=== PATIENT | male | born 1950 | race American Indian/Alaskan Native ===

== ENCOUNTER 2017-02-27 20:10 | Inpatient (IN) | payer OTHER ==
[~2017-02-27] VITALS: Ht 177.8 cm; Wt 108.7 kg
--- NOTE | 2017-02-27 00:08 | NUR ---
ADMISSION NOTE Received patient from ER via gurney. Patient admitted with diagnosis of PNA. Patient is awake, alert, oriented X 4. Patient oriented to hospital room, call light, toileting, pain management and safety-teach back done. Patient informed that Terri will be her nurse and that their room number is 116A. Personal belongings checked and Belongings List documented. Call light within reach.
[2017-02-27 20:36] VITALS: BP_SYST 113
[2017-02-27] MEDS ORDERED: INSU100V9 SUBCUT (20:56)
[2017-02-27] MEDS ORDERED: INSU100V32 SUBCUT (20:56)
--- NOTE | 2017-02-27 20:56 | NUR ---
[place] with pain in the right groin, pain with weight bearing 10/10. Some numbing and tingling present in right lower extremity. Pedal pulse faint in right foot.
--- NOTE | 2017-02-27 21:03 | NUR ---
ER at bedside examining patient.
[2017-02-27] MEDS ORDERED: NACL 0.9% 1,000 ML IV ONE (21:10)
[2017-02-27] MEDS ORDERED: fentaNYL CITRATE/PF 100 MCG/2 ML AMP IVP ONE (21:15)
[2017-02-27] MEDS ORDERED: ASPIRIN 81 MG TAB.CHEW PO ONE (21:15)
[2017-02-27 21:54] LABS: BASOPHILS # (AUTO) 0.1 K/uL (0.0-0.2); BASOPHILS % (AUTO) 0.7 % (0.0-2.0); EOSINOPHILS % (AUTO) 0.4 % (0.0-4.0); HEMATOCRIT 47.6 % (36-54); HEMOGLOBIN 15.8 g/dL (14.0-18.0); LYMPHOCYTES # (AUTO) 1.6 K/uL (1.0-5.5); LYMPHOCYTES % (AUTO) 14.4 % (20.5-51.5); MEAN CORPUSCULAR HEMOGLOBIN 31 pg (27-31); MEAN CORPUSCULAR HGB CONC 33 % (32-36); MEAN CORPUSCULAR VOLUME 92 fL (79.0-98.0); MONOCYTES # (AUTO) 0.9 K/uL (0.0-1.0); NEUTROPHILS # (AUTO) 8.3 K/uL (1.8-7.7); NEUTROPHILS % (AUTO) 76.5 % (40.0-70.0); PLATELET COUNT (AUTO) 230 K/uL (130-430); RED BLOOD CELL COUNT(AUTO) 5.17 MIL/uL (4.2-6.2); RED CELL DISTRIBUTION WIDTH 12.1 % (9.0-15.0); WHITE BLOOD COUNT (AUTO) 10.9 K/uL (4.8-10.8)
[2017-02-27 21:57] LABS: ANION GAP 10 (5-15); CALCIUM 10.1 mg/dL (8.4-11.0); CHLORIDE 103 mmol/L (98-107); CREATININE 1.34 mg/dL (0.55-1.30); GLUCOSE 132 mg/dL (70-99); POTASSIUM 4.9 mmol/L (3.5-5.1); SODIUM SERUM 138 mmol/L (136-145); UREA NITROGEN, BLOOD 24 mg/dL (8-21)
[2017-02-27 21:58] LABS: GFR AFRICAN AMERICAN 68 mL/min (>90)
[2017-02-27 22:01] LABS: PROTHROMBIN TIME 10.5 SECS (9.5-12.5)
[2017-02-27 22:09] LABS: ALANINE AMINOTRANSFERASE 32 U/L (12-78); ALBUMIN 3.7 g/dL (3.4-4.8); ASPARTATE AMINOTRANSFERASE 24 U/L (10-37); TOTAL BILIRUBIN 0.6 mg/dL (0.0-1.0); TOTAL PROTEIN, SERUM 7.7 g/dL (6.4-8.3)
[2017-02-27] MEDS ORDERED: PIPERACILLIN/TAZO 3.375 GM in NS 50 ML IV ONE (22:30)
[2017-02-27] MEDS ORDERED: PIPERACILLIN/TAZOBACTAM 3.375 GM/VIAL (ZOSYN) IV ONE (22:43)
[2017-02-27] MEDS ORDERED: IBUP-1480 PO (23:00)
--- NOTE | 2017-02-27 23:15 | NUR ---
Dr Cabrera arrived to the ER, and starting to order CT of the head, x-ray of right lower leg, and other studies before Pt could be moved out to the floor.
[2017-02-27] MEDS ORDERED: ACETAMINOPHEN 325 MG TABLET PO ONE (23:30)
[2017-02-28] VITALS (7 sets, daily range): BP systolic 113–138
--- NOTE | 2017-02-28 00:15 | NUR ---
Patient will be admitted to care of Dr Cabrera. Admitted to Med/Surg unit. Will go to room 116A. Belongings list completed. Summary report printed. Report will be given at bedside.
--- NOTE | 2017-02-28 00:20 | NUR ---
ROUNDS PATIENT IN BED, AWAKE, ALERT, ORIENTED, NOT IN DISTRESS,VITALS STABLE. ASSESSMENT DONE AND DOCUMENTED. SEE FLOWSHEET. PLAN OF CARE DISCUSSED AND PATIENT VERBALIZED UNDERSTANDING. ORIENTED TO HIS ROOM, PHONE, TV AND CALL LIGHT. NEEDS ATTENDED TO. SAFETY AND FALL PRECAUTION MEASURES IN PLACED. BED IN LOW AND LOCKED POSITION. CALL LIGHT PLACED WITHIN REACH.
[2017-02-28] MEDS ORDERED: AZITHROMYCIN 500 MG/VIAL (ZITHROMAX) IV ONE (01:06)
[2017-02-28] MEDS ORDERED: cefTRIAXone 1 GM IVPB PREMIX 50 ML IV ONE (01:07)
--- NOTE | 2017-02-28 01:13 | NUR ---
Consultation Paged Reason for consultation: Right Leg Weakness Was consult called: Yes Person who was notified: Nuris Consulting Physician: Jose Frey Pen Maker Specialty: Neurology Pen Maker Ordered By: Dr Cabrera
[2017-02-28] MEDS: cefTRIAXone 1 GM in D5W 50 ML IV SCH ×2 (02:00→11:52)
--- NOTE | 2017-02-28 02:15 | NUR ---
PATIENT RESTING: Patient resting quietly. No acute distress noted. Vital signs within normal range.
[2017-02-28] MEDS: 0.45% NACL 1,000 ML IV SCH ×2 (02:22→20:58)
[2017-02-28] MEDS: AZITHROMYCIN 500 MG in NS 250 ML IV SCH (02:22)
--- NOTE | 2017-02-28 04:00 | NUR ---
PATIENT RESTING: Patient resting quietly. No acute distress noted. Vital signs within normal range.
[2017-02-28] MEDS: INSULIN REGULAR, HUMAN 100 UNITS/ML, 10 ML VIAL (novoLIN R) SUBCUT PRN ×4 (06:14→21:07)
[2017-02-28 06:34] LABS: BASOPHILS # (AUTO) 0.1 K/uL (0.0-0.2); BASOPHILS % (AUTO) 0.7 % (0.0-2.0); EOSINOPHILS # (AUTO) 0.2 K/uL (0.0-0.4); EOSINOPHILS % (AUTO) 1.7 % (0.0-4.0); HEMATOCRIT 41.2 % (36-54); LYMPHOCYTES # (AUTO) 2.9 K/uL (1.0-5.5); LYMPHOCYTES % (AUTO) 28.8 % (20.5-51.5); MEAN CORPUSCULAR HEMOGLOBIN 32 pg (27-31); MEAN CORPUSCULAR HGB CONC 34 % (32-36); MEAN CORPUSCULAR VOLUME 93 fL (79.0-98.0); MONOCYTES # (AUTO) 1.2 K/uL (0.0-1.0); MONOCYTES % (AUTO) 11.6 % (1.7-9.3); NEUTROPHILS # (AUTO) 5.5 K/uL (1.8-7.7); NEUTROPHILS % (AUTO) 57.2 % (40.0-70.0); PLATELET COUNT (AUTO) 192 K/uL (130-430); RED BLOOD CELL COUNT(AUTO) 4.44 MIL/uL (4.2-6.2); RED CELL DISTRIBUTION WIDTH 11.8 % (9.0-15.0); WHITE BLOOD COUNT (AUTO) 9.9 K/uL (4.8-10.8)
[2017-02-28 06:50] LABS: ALBUMIN 3.2 g/dL (3.4-4.8); CALCIUM 8.8 mg/dL (8.4-11.0); CREATININE 1.29 mg/dL (0.55-1.30); POTASSIUM 4.4 mmol/L (3.5-5.1); TOTAL BILIRUBIN 0.6 mg/dL (0.0-1.0); TOTAL PROTEIN, SERUM 6.8 g/dL (6.4-8.3)
--- NOTE | 2017-02-28 06:53 | NUR ---
CLOSING NOTES PATIENT AWAKE, VITALS STABLE, NO PAIN AND DISCOMFORT AT THIS TIME. ALL NEEDS ATTENDED TO. SAFETY MEASURES MAINTAINED. CALL LIGHT PLACED WITHIN REACH.
[2017-02-28] MEDS: IPRATROPIUM/ALBUTEROL SULFATE 3 ML AMPUL.NEB INH SCH ×3 (07:28→19:40)
--- NOTE | 2017-02-28 08:00 | NUR ---
AM Initial Notes Pt aaox4 with complaints of right leg pain 06/21. Informed patient that I will put a page to Dr. Cabrera for medication orders. No sob, difficulty breathing or distress noted. IV to right hand #22g patent with IV fluid infusing. Fall and safety precautions enforced with bed alarm armed and 3 rails up. Encouraged to call for assistance. Call light within reach. Will monitor.
--- NOTE | 2017-02-28 08:09 | NUR ---
MD JACOB CALLED [facility] AT SPOKE WITH DR.AZAB CLAYTON AMANY LIP CUTTER AND SCORER.
--- NOTE | 2017-02-28 08:30 | NUR ---
Pain level Pt states pain to right leg decreased to 6/10 after repositioning and ice pack applied. Also states he still wants to be medicated with another stronger medication. Will inform .
--- NOTE | 2017-02-28 08:35 | NUR ---
Dr. Augie DE DIOS doing rounds and thoroughly assessed the patient. Plan of care discussed.
[2017-02-28] MEDS: MORPHINE 2 MG/ML INJ. SYRINGE IVP PRN ×3 (08:53→21:01)
--- NOTE | 2017-02-28 08:57 | NUR ---
CONSULTATION PAGED REASON FOR CONSULTATION:LEG WEAKNESS WAS CONSULT CALLED?Y PERSON WHO WAS NOTIFIED:HOLLEY CONSULTING PHYSICIAN:NOHEMY FERNÁNDEZ SATELLITE DISH TECHNICIAN SPECIALTY:NEURO SATELLITE DISH TECHNICIAN PHONE NUMBER:[phone]
[2017-02-28] MEDS ORDERED: MORPHINE 4 MG/ML INJ. SYRINGE IVP PRN (09:00)
[2017-02-28] MEDS ORDERED: cefTRIAXone 1 GM in D5W 50 ML IV SCH (09:00)
[2017-02-28] MEDS ORDERED: ASPIRIN 81 MG TAB.CHEW PO ONE (09:00)
[2017-02-28] MEDS ORDERED: AZITHROMYCIN 500 MG in NS 250 ML IV SCH (09:00)
--- NOTE | 2017-02-28 09:01 | NUR ---
Nutrition Update Daniel Scale 17 noted. Pt admitted for pneumonia. Diet: [facility] BMI: 34.4 kg/m2 RD to follow per nutrition care standards.
--- NOTE | 2017-02-28 09:02 | NUR ---
Pain Meds Given Pt c/o pain to leg, pt is restless in bed. Morphine 2mg IVP given over 1 minute. Pt c/o of feeling sleepy immediately after administration of Morphine. Pt placed on 2L via NC oxygen. O2 sat 96%. Pt is easily arousable to name and pt remains alert and oriented. Pt instructed on need to call for assist prior to ambulating, pt verbalize understanding. Bed alarm on. Bed in lowest position. Side rails x3. Call light in hand. Continue to monitor pt closely. MEI Montelongo made aware.
[2017-02-28] MEDS ORDERED: ONDANSETRON HCL 4 MG/2 ML VIAL IVP PRN (10:15)
--- NOTE | 2017-02-28 11:00 | NUR ---
Rounds Pt just got back from MRI. States pain is starting to come back and escalating. No distress noted. Repositioned and kept comfortable. Call light within reach. Will monitor.
--- NOTE | 2017-02-28 13:00 | NUR ---
Pain Pt complaints of right leg pain 5/10. No distress noted. Informed RN for medication administration.
--- NOTE | 2017-02-28 13:22 | NUR ---
CONSULTATION PAGED REASON FOR CONSULTATION:LUMBAR DISC WAS CONSULT CALLED?Y PERSON WHO WAS NOTIFIED:HALIE CONSULTING PHYSICIAN:SHYAM HAINES (NAKIA WILKES METER AND SERVICE LINE INSPECTOR) ENTRY LEVEL MARKETING ASSISTANT SPECIALTY:NEUROSURGERY ENTRY LEVEL MARKETING ASSISTANT PHONE NUMBER:[phone]
--- NOTE | 2017-02-28 16:35 | NUR ---
Rounds Pt asleep. No signs of facial grimacing for pain or discomfort. No distress noted. Will monitor.
--- NOTE | 2017-02-28 18:30 | NUR ---
Closing notes Pt asleep. No signs of facial grimacing for pain or discomfort. No distress noted. IV fluid infusing. Will endorse care to incoming nurse.
--- NOTE | 2017-02-28 20:45 | NUR ---
OPENING NOTES PATIENT IS A/OX4. NO SIGNS OF DISTRESS. BREATHING IS NON LABORED. IV IS PATIENT. URINAL IS AT BEDSIDE. PATIENT HAS NO COMPLAINTS OF PAIN. VITAL SIGNS ARE STABLE. BED ALARM IS ON. CALL LIGHT IS WITHIN REACH. PATIENT INSTRUCTED TO CALL FOR CALL FOR ASSISTANCE. PATIENT VERBALIZED UNDERSTANDING. WILL CONTINUE TO MONITOR.
--- NOTE | 2017-02-28 22:44 | NUR ---
ROUNDS PATIENT IN BED SLEEPING. NO SIGNS OF DISTRESS. BREATHING IS NON LABORED. BED ALARM IS ON. WILL CONTINUE TO MONITOR.
[2017-03-01] VITALS (7 sets, daily range): BP systolic 118–144
[2017-03-01] MEDS: IPRATROPIUM/ALBUTEROL SULFATE 3 ML AMPUL.NEB INH SCH ×4 (00:01→19:55)
--- NOTE | 2017-03-01 01:15 | NUR ---
ROUNDS PATIENT IS IN BED SLEEPING COMFORTABLE. NO SIGNS OF DISTRESS. BREATHING IS NON LABORED. BED ALARM IS ON. CALL LIGHT IS WITHIN REACH. WILL CONTINUE TO MONITOR.
--- NOTE | 2017-03-01 03:25 | NUR ---
PATIENT REFUSED BED ALARM PATIENT REFUSED BED ALARM. PATIENT STATED THAT HE NEEDS TO STAND UP WHEN URINATING AND IS FRUSTRATED WHEN BED ALARM GOES OFF. PATIENT EDUCATED ON SAFETY. PATIENT REFUSED BED ALARM. PATIENT INSTRUCTED TO CALL FOR ASSISTANCE. PATIENT VERBALIZED UNDERSTANDING. SAFETY MEASURES ARE IN PLACE. PATIENT REFUSED TO WEAR NON SKID SLIPPERS AT THIS TIME. WILL CONTINUE TO MONITOR. CALL LIGHT IS WITHIN REACH. SAFETY MEASURES ARE IN PLACE.
--- NOTE | 2017-03-01 05:44 | NUR ---
PATIENT CARE PATIENT WAS ASSISTED TO THE RESTROOM AND BACK INTO BED. PATIENT GAIT IS NOT STEADY. PATIENT NEEDED ASSISTED AND USE OF CANE. PATIENT REFUSED BEDSIDE COMMODE. PATIENT IS IN BED RESTING COMFORTABLY. PATIENT REFUSED BED ALARM. PATIENT EDUCATED ON THE IMPORTANCE OF BED ALARM. PATIENT REFUSED. CALL LIGHT IS WITHIN REACH. SAFETY MEASURES ARE IN PLACE. WILL CONTINUE TO MONITOR. PATIENT INSTRUCTED TO CALL FOR ASSISTANCE. PATIENT VERBALIZED UNDERSTANDING.
[2017-03-01] MEDS: DEXAMETHASONE 1 MG TABLET (DECADRON) PO SCH ×3 (06:00→21:33)
[2017-03-01] MEDS: INSULIN REGULAR, HUMAN 100 UNITS/ML, 10 ML VIAL (novoLIN R) SUBCUT PRN ×4 (06:13→21:39)
--- NOTE | 2017-03-01 06:28 | NUR ---
NEW IV IV THE LEFT HAND DISLODGED. NEW IV TO THE RIGHT HAND 22G WAS INSERTED. PATIENT TOLERATED IT WELL.
[2017-03-01] MEDS: MORPHINE 2 MG/ML INJ. SYRINGE IVP PRN (06:35)
--- NOTE | 2017-03-01 06:49 | NUR ---
CLOSING NOTES PATIENT IS IN RESTING COMFORTABLY IN BED. NO SIGNS OF DISTRESS. BREATHING IS NON LABORED. IV IS PATENT. CALL LIGHT IS WITHIN REACH. PATIENT REFUSED BED ALARM. SAFETY MEASURES ARE IN PLACE. WILL ENDORSE ALL CARE TO THE MORNING NURSE.
--- NOTE | 2017-03-01 08:00 | NUR ---
RN OPENING NOTES PATIENT LYING ON BED ALERT ORIENTED X 4 PATIENT WAS ASSESSED AND VITAL SIGNS ARE STABLE, PATIENT WILL BE GIVEN HIS MED, WILL FOLLOW UP
[2017-03-01] MEDS ORDERED: MORPHINE 2 MG/ML INJ. SYRINGE IVP PRN (08:45)
--- NOTE | 2017-03-01 09:13 | NUR ---
CONSULT PULMONOLOGY PNEUMONIA DR NAVARRETE [phone] S/W [facility] OFFICE @ [phone]
[2017-03-01] MEDS: cefTRIAXone 1 GM in D5W 50 ML IV SCH (09:35)
[2017-03-01] MEDS: AZITHROMYCIN 500 MG in NS 250 ML IV SCH (09:35)
--- NOTE | 2017-03-01 10:00 | NUR ---
RN ROUNDS [facility] CALLED AND CAME TO AMBULATE THE PATIENT OOB.. THE MD CALLED TO STOP THE AMBULATION SINCE THE PATIENT HAS FRACTURE IN THE RIGHT ANKLE. PATIENT WAS PUT TO BED REST.
--- NOTE | 2017-03-01 10:54 | NUR ---
CONSULTATION FOR TIB/FIB FRACTURE HARJINDER VERA FROM DR VILLALPANDO OFFICE DR VILLALPANDO SHOE LINING FITTER FOR DR VINCENT [phone]
--- NOTE | 2017-03-01 11:30 | NUR ---
RN ROUNDS PATIENT LYING ON BED, BLOOD SUGAR WAS MEASURED TO BE 295 MG/DL PATIENT WILL BE COVERED WITH REGULAR INSULIN WILL FOLLOW UP
--- NOTE | 2017-03-01 14:00 | NUR ---
RN ROUNDS PATIENT LYING ON BED SLEEPING, BREATHING ARE REGULAR , WILL FOLLOW UP WITH PATIENT'S ROUNDS
--- NOTE | 2017-03-01 17:00 | NUR ---
RN ROUNDS PATIENT LYING ON BED, BLOOD SUGAR WAS MEASURED TO BE 281 MG/DL PATIENT WILL BE COVERED WITH REGULAR INSULIN WILL FOLLOW UP
--- NOTE | 2017-03-01 18:00 | NUR ---
RN CLOSING NOTES. PATIENT WAS SERVED HIS DINNER, TOLERATED IT, THE BOOT FOR HIS RIGHT LEG WILL BE BROUGHT INTO HIS ROOM , WILL APPLY IT ONCE AVAILABLE, WILL SIGN OFF TO THE NEXT SHIFT
--- NOTE | 2017-03-01 20:05 | NUR ---
Initial Notes Patient alert and oriented, able to make needs known. Patient denies pain at this time. No SOB noted, on room air. Denies nausea/vomiting at this time. IV site patent, flushes well, infusing fluids as ordered. Patient repositioned self in bed. Goal of pain management, respiratory stability and safety this shift. Call light within reach. Will continue to monitor.
--- NOTE | 2017-03-01 22:00 | NUR ---
Notes Patient sleeping. No s/s of pain noted. No SOB noted. IV site patent, flushes well, infusing fluids as ordered. Call light within reach. Will continue to monitor.
--- NOTE | 2017-03-02 00:19 | NUR ---
Notes Patient sleeping at this time. No s/s of pain noted. No SOB noted. Afebrile. IV site patent, flushes well. Call light within reach. Will continue to monitor.
[2017-03-02] MEDS: IPRATROPIUM/ALBUTEROL SULFATE 3 ML AMPUL.NEB INH SCH ×3 (01:00→13:40)
[2017-03-02 03:51] VITALS: BP_SYST 104
[2017-03-02] MEDS: DEXAMETHASONE 1 MG TABLET (DECADRON) PO SCH (06:14)
[2017-03-02] MEDS: INSULIN REGULAR, HUMAN 100 UNITS/ML, 10 ML VIAL (novoLIN R) SUBCUT PRN ×2 (06:22→11:45)
--- NOTE | 2017-03-02 06:42 | NUR ---
Closing Notes Patient denies pain at this time. No SOB noted, on room air. Denies nausea/vomiting at this time. IV site patent, flushes well, infusing fluids as ordered. Goal of pain management, respiratory stability and safety met. Call light within reach. Will continue to monitor.
--- NOTE | 2017-03-02 07:56 | NUR ---
INITIAL NOTE RECEIVED PATIENT FROM REHABILITATION MEDICINE PHYSICIAN NURSE, PATIENT IS CURRENTLY RESTING IN BED, NO SIGNS OF DISTRESS NOTED, BREATHING IS EVEN AND UNLABORED, ASSESSMENT COMPLETE, PATIENT HAS IV IN RIGHT HAND SALINE LOCK, FLUSHES WELL, PATIENT CURRENTLY HAS BOOT ON RIGHT FOOT, INSTRUCTED PATIENT TO USE CALL VEGA IF ASSISTANCE IS NEEDED, PATIENT VERBALIZED UNDERSTANDING, BED IN LOWEST POSITION, SIDE RAILS UP, BED ALARM ON, FALL PRECAUTIONS IN PLACE. WILL CONTINUE TO MONITOR,
[2017-03-02 08:00] VITALS: BP_SYST 128
[2017-03-02] MEDS: cefTRIAXone 1 GM in D5W 50 ML IV SCH (08:42)
--- NOTE | 2017-03-02 08:43 | NUR ---
MEDICATION PATIENT'S ANTIBIOTIC IS BEING ADMINISTERED, INSTRUCTED PATIENT TO CALL IF SWELLING AT IV SITE IS NOTED, PATIENT VERBALIZED UNDERSTANDING, PATIENT ALSO GIVEN PRN PAIN MEDICATION FOR PAIN AT LEVEL 8 IN RIGHT LEG/KNEE, NO OTHER NEEDS AT THIS TIME, WILL CONTINUE TO MONITOR, FALL PRECAUTIONS IN PLACE.
[2017-03-02] MEDS: AZITHROMYCIN 500 MG in NS 250 ML IV SCH (09:19)
--- NOTE | 2017-03-02 09:45 | NUR ---
RN ROUNDS PATIENT IS CURRENTLY RESTING IN BED WITH EYES CLOSED, NO SIGNS OF DISTRESS NOTED, BREATHING IS EVEN AND UNLABORED, CALL VEGA LEFT NEXT TO PATIENT'S HAND, BED IN LOWEST POSITION, SIDE RAILS UP, FALL PRECAUTIONS IN PLACE, WILL CONTINUE TO MONITOR. FALL PRECAUTIONS IN PLACE.
--- NOTE | 2017-03-02 11:34 | NUR ---
RN ROUNDS PATIENT IS LYING IN BED ON CELL PHONE, ACCUCHECK DONE, GLUCOSE IS AT 298,WILL GIVE INSULIN COVERAGE, WILL CONTINUE TO MONITOR, FALL PRECAUTIONS IN PLACE.
[2017-03-02] MEDS ORDERED: HYDROcodone/ACETAMIN 10-325 MG TAB PO PRN (12:30)
[2017-03-02 12:33] VITALS: BP_SYST 138
--- NOTE | 2017-03-02 12:48 | NUR ---
RN ROUNDS PATIENT IS SITTING ON SIDE OF BED EATING LUNCH, NO COMPLAINTS OF PAIN OR DISCOMFORT, FALL PRECAUTIONS IN PLACE WILL CONTINUE TO MONITOR.
--- NOTE | 2017-03-02 13:40 | NUR ---
HCP/PA: Called CHRISTAL Horvath made her aware of discharge to SNF. Patient accepted [facility], pending bed assignment. RN to report [phone]. [facility] ambulance [phone] on will call.
--- NOTE | 2017-03-02 14:39 | NUR ---
RN ROUNDS PATIENT LYING IN BED ON CELLPHONE, PATIENT HAS NO COMPLAINTS OF PAIN OR DISCOMFORT AT THIS TIME, FALL PRECAUTIONS IN PLACE, WILL CONTINUE TO MONITOR.
--- NOTE | 2017-03-02 14:45 | NUR ---
PT TRANSFERRED Report given to YANETH JOHNSON at [facility]. Transfer packet with Transfer Orders and Medication Reconciliation form given to EMT with report. Exitcare provided. [facility] ID band removed, replaced with ID band with pt's name and . IV catheter intact All belongings sent with patient. Patient left floor via gurney escorted by EMT in no distress. Addendum: 03/02/17 at 1710 by Irving Mancini RN wrong time 16:45
--- NOTE | 2017-03-02 15:55 | NUR ---
RN ROUNDS PATIENT IS CURRENTLY LYING IN BED, PATIENT MADE AWARE OF DISCHARGE TIME, NO OTHER NEEDS AT THIS TIME, WILL CONTINUE TO MONITOR.
[2017-03-02 16:10] VITALS: BP_SYST 121
[2017-03-02 16:22] VITALS: BP_SYST 121
--- NOTE | 2017-03-02 16:45 | NUR ---
PT TRANSFERRED Report given to YANETH JOHNSON at [facility]. Transfer packet with Transfer Orders and Medication Reconciliation form given to EMT with report. Exitcare provided. [facility] ID band removed, replaced with ID band with pt's name and . IV catheter intact All belongings sent with patient. Patient left floor via gurney escorted by EMT in no distress.
== END 2017-03-02 17:00 | DRG 562 ==
LOC: SED 20:10 → SMU 23:06
DX: S82.61XA Displaced fracture of lateral malleolus of right fibula, initial encounter for closed fracture (principal); J18.9 Pneumonia, unspecified organism; N17.9 Acute kidney failure, unspecified; M51.16 Intervertebral disc disorders with radiculopathy, lumbar region; M48.06 Spinal stenosis, lumbar region; I25.10 Atherosclerotic heart disease of native coronary artery without angina pectoris; E11.42 Type 2 diabetes mellitus with diabetic polyneuropathy; M19.90 Unspecified osteoarthritis, unspecified site; G89.29 Other chronic pain; W18.30XA Fall on same level, unspecified, initial encounter; S83.90XA Sprain of unspecified site of unspecified knee, initial encounter; I10 Essential (primary) hypertension; T38.0X5A Adverse effect of glucocorticoids and synthetic analogues, initial encounter; Z86.73 Personal history of transient ischemic attack (TIA), and cerebral infarction without residual deficits; Z95.1 Presence of aortocoronary bypass graft; Z88.5 Allergy status to narcotic agent; Z79.4 Long term (current) use of insulin; Z79.899 Other long term (current) drug therapy; Y93.89 Activity, other specified; Y92.89 Other specified places as the place of occurrence of the external cause; Y99.8 Other external cause status; I25.2 Old myocardial infarction; M54.2 Cervicalgia; M54.9 Dorsalgia, unspecified
CPT/HCPCS: 36415; 70450-TC; 71010; 72148; 73560-TC; 73564; 80053; 82962; 83880; 84302-TC; 84484; 85025; 85379; 85610-TC; 85651-TC; 85730-TC; 86140; 87040-TC; 93880; 93971; 94640; 94760; 96361; 96365; 96375; 97110-GP; 97116-GP; 97530-GP; 99285; J0456; J0696; J1815; J2270; J2543; J3010; J7030; J7042; J7050; J7060

== ENCOUNTER 2019-06-25 16:29 | Emergency (ER) | payer BC, OTHER ==
[~2019-06-25] VITALS: Ht 177.8 cm; Wt 104.3 kg
[~2019-06-25 16:29] MED LIST: INSU100V32 SUBCUT; INSU100V9 SUBCUT
[2019-06-25 16:40] VITALS: BP_SYST 117
[2019-06-25 18:14] LABS: BASOPHILS % (AUTO) 0.2 % (0.0-2.0); EOSINOPHILS # (AUTO) 0.2 K/uL (0.0-0.4); EOSINOPHILS % (AUTO) 2.9 % (0.0-4.0); HEMATOCRIT 42.4 % (36-54); HEMOGLOBIN 14.4 g/dL (14.0-18.0); LYMPHOCYTES # (AUTO) 2.4 K/uL (1.0-5.5); LYMPHOCYTES % (AUTO) 34.5 % (20.5-51.5); MEAN CORPUSCULAR HEMOGLOBIN 32 pg (27-31); MEAN CORPUSCULAR HGB CONC 34 % (32-36); MEAN CORPUSCULAR VOLUME 96 fL (79.0-98.0); MONOCYTES # (AUTO) 0.7 K/uL (0.0-1.0); MONOCYTES % (AUTO) 10.6 % (1.7-9.3); NEUTROPHILS # (AUTO) 3.6 K/uL (1.8-7.7); NEUTROPHILS % (AUTO) 51.8 % (40.0-70.0); PLATELET COUNT (AUTO) 193 K/uL (130-430); RED BLOOD CELL COUNT(AUTO) 4.44 MIL/uL (4.2-6.2); RED CELL DISTRIBUTION WIDTH 13.3 % (9.0-15.0)
[2019-06-25 18:28] LABS: CALCIUM 8.4 mg/dL (8.4-11.0); CREATININE 1.02 mg/dL (0.55-1.30); POTASSIUM 4.2 mmol/L (3.5-5.1)
[2019-06-25 18:30] LABS: INR 0.9 (0.80-1.20); PROTHROMBIN TIME 9.4 SECS (9.5-12.5)
[2019-06-25 18:33] LABS: ALBUMIN 3.4 g/dL (3.4-4.8); TOTAL BILIRUBIN 0.4 mg/dL (0.0-1.0)
[2019-06-25 18:38] LABS: BILIRUBIN,URINE NEGATIVE (NEGATIVE); BLOOD, URINE NEGATIVE (NEGATIVE); CLARITY/URINE CLEAR (CLEAR); COLOR,URINE YELLOW (YELLOW); GLUCOSE,URINE 3+ (NEGATIVE); KETONES,URINE NEGATIVE (NEGATIVE); LEUKOCYTE ESTERASE ,URINE NEGATIVE (NEGATIVE); NITRITE, URINE NEGATIVE (NEGATIVE); PH,URINE 6.5 (5.0-8.0); PROTEIN URINE NEGATIVE (NEGATIVE); UROBILINOGEN,URINE 0.2 (0.2-1.0)
[2019-06-25 18:58] LABS: BACTERIA,URINE RARE /HPF (None Seen); RBC,URINE 0-3 /HPF (0-3); WBC,URINE 0-3 /HPF (0-3)
[2019-06-25 20:45] VITALS: BP_SYST 134
== END 2019-06-25 20:45 | disposition home or self-care (01) ==
LOC: SED 16:29
DX: R33.9 Retention of urine, unspecified (principal); E11.9 Type 2 diabetes mellitus without complications; I10 Essential (primary) hypertension; Z88.5 Allergy status to narcotic agent; Z79.4 Long term (current) use of insulin; Z86.79 Personal history of other diseases of the circulatory system
CPT/HCPCS: 36415; 80053; 81000-TC; 82150-TC; 83605; 83690-TC; 85025; 85610-TC; 85730-TC; 99284

== ENCOUNTER 2019-06-27 06:30 | Emergency (ER) | payer BC ==
[~2019-06-27] VITALS: Ht 177.8 cm; Wt 104.3 kg
[2019-06-27 06:33] VITALS: BP_SYST 114
[2019-06-27 07:28] LABS: BASOPHILS # (AUTO) 0.1 K/uL (0.0-0.2); BASOPHILS % (AUTO) 1.3 % (0.0-2.0); EOSINOPHILS # (AUTO) 0.1 K/uL (0.0-0.4); EOSINOPHILS % (AUTO) 1.3 % (0.0-4.0); HEMATOCRIT 41.6 % (36-54); HEMOGLOBIN 14.4 g/dL (14.0-18.0); LYMPHOCYTES # (AUTO) 2.3 K/uL (1.0-5.5); LYMPHOCYTES % (AUTO) 21.6 % (20.5-51.5); MEAN CORPUSCULAR HEMOGLOBIN 33 pg (27-31); MEAN CORPUSCULAR HGB CONC 35 % (32-36); MEAN CORPUSCULAR VOLUME 95 fL (79.0-98.0); MONOCYTES # (AUTO) 1.3 K/uL (0.0-1.0); MONOCYTES % (AUTO) 11.7 % (1.7-9.3); NEUTROPHILS # (AUTO) 6.9 K/uL (1.8-7.7); NEUTROPHILS % (AUTO) 64.1 % (40.0-70.0); PLATELET COUNT (AUTO) 199 K/uL (130-430); RED BLOOD CELL COUNT(AUTO) 4.38 MIL/uL (4.2-6.2); RED CELL DISTRIBUTION WIDTH 13.3 % (9.0-15.0); WHITE BLOOD COUNT (AUTO) 10.8 K/uL (4.8-10.8)
[2019-06-27 07:46] LABS: PROTHROMBIN TIME 9.8 SECS (9.5-12.5)
[2019-06-27 08:15] VITALS: BP_SYST 102
== END 2019-06-27 08:15 | disposition home or self-care (01) ==
LOC: SED 06:30
DX: R33.9 Retention of urine, unspecified (principal); E11.9 Type 2 diabetes mellitus without complications; I10 Essential (primary) hypertension; Z46.6 Encounter for fitting and adjustment of urinary device; Z86.79 Personal history of other diseases of the circulatory system; Z90.49 Acquired absence of other specified parts of digestive tract; Z88.5 Allergy status to narcotic agent; Z79.899 Other long term (current) drug therapy
CPT/HCPCS: 36415; 76857; 85025; 85610-TC; 99284

== ENCOUNTER 2020-02-18 18:00 | Emergency (ER) | payer BC, OTHER ==
[~2020-02-18] VITALS: Ht 177.8 cm; Wt 77.1 kg
[2020-02-18 18:35] VITALS: BP_SYST 121
--- NOTE | 2020-02-18 18:35 | NUR ---
Placed in room 2. Placed on environmental monitoring technician, blood pressure machine and pulse oximeter. To gown for exam. Side rails up. Report given to ALEX Reyes.
[2020-02-18] MEDS ORDERED: NACL 0.9% 1,000 ML IV ONE ×2 (18:40→20:15)
--- NOTE | 2020-02-18 18:45 | NUR ---
ER at bedside examining patient.
--- NOTE | 2020-02-18 18:50 | NUR ---
pt arrives from home. States that she ran out of his DM one week ago. Pt arrives to the ER w/ nausea anbd lethnargy. Pt is awake and oriented x 4 at the moment. Will continue to monitor
--- NOTE | 2020-02-18 19:06 | NUR ---
# 20 gauge angiocath placed to left wrist. Use of asceptic technique. Opsite placed over site. Blood return noted. Blood for lab drawn from site. Flushed with 10 cc of normal saline. No evidence of infiltration noted. Patient tolerated well.
--- NOTE | 2020-02-18 19:10 | NUR ---
NS 1l curretly infusing per ND order .
--- NOTE | 2020-02-18 19:18 | NUR ---
report given to Leatha JOHNSON. Pt mis in stable condition
--- NOTE | 2020-02-18 19:19 | NUR ---
Report Recieved from ALEX Reyes.
[2020-02-18 19:27] LABS: ANION GAP 6 (5-15); CALCIUM 8.7 mg/dL (8.4-11.0); CHLORIDE 99 mmol/L (98-107); POTASSIUM 4.3 mmol/L (3.5-5.1); SODIUM SERUM 131 mmol/L (136-145); UREA NITROGEN, BLOOD 28 mg/dL (8-21)
[2020-02-18 19:29] LABS: GLUCOSE 551 mg/dL (70-99)
[2020-02-18 19:40] LABS: ACETONE, SERUM NEGATIVE (NEGATIVE)
[2020-02-18 19:44] LABS: ALANINE AMINOTRANSFERASE 23 U/L (12-78); ALBUMIN 3.2 g/dL (3.4-4.8); ASPARTATE AMINOTRANSFERASE 15 U/L (10-37); TOTAL BILIRUBIN 0.3 mg/dL (0.0-1.0)
[2020-02-18] MEDS ORDERED: INSULIN REGULAR, HUMAN 10 UNITS/0.1 ML INJ IVP ONE ×2 (19:45→21:15)
[2020-02-18] MEDS ORDERED: INSULIN REGULAR, HUMAN 10 UNITS/0.1 ML INJ ONE (20:14)
--- NOTE | 2020-02-18 20:41 | NUR ---
Pt states takes the following medications Humalog 60u per day, Lantus 60 QHS and Metaformin 100 mg
[2020-02-18 21:01] LABS: WHITE BLOOD COUNT (AUTO) 7.1 K/uL (4.8-10.8)
[2020-02-18 21:02] LABS: BASOPHILS % (AUTO) 1.8 % (0.0-2.0); EOSINOPHILS % (AUTO) 2.6 % (0.0-4.0); HEMATOCRIT 40.3 % (36-54); HEMOGLOBIN 13.5 g/dL (14.0-18.0); LYMPHOCYTES % (AUTO) 29.8 % (20.5-51.5); MEAN CORPUSCULAR HEMOGLOBIN 32 pg (27-31); MEAN CORPUSCULAR HGB CONC 33 % (32-36); MEAN CORPUSCULAR VOLUME 96 fL (79.0-98.0); MONOCYTES % (AUTO) 11.8 % (1.7-9.3); NEUTROPHILS # (AUTO) 3.9 K/uL (1.8-7.7); PLATELET COUNT (AUTO) 216 K/uL (130-430); RED CELL DISTRIBUTION WIDTH 12.6 % (9.0-15.0)
[2020-02-18 21:03] LABS: BASOPHILS # (AUTO) 0.1 K/uL (0.0-0.2); EOSINOPHILS # (AUTO) 0.2 K/uL (0.0-0.4); LYMPHOCYTES # (AUTO) 2.1 K/uL (1.0-5.5); MONOCYTES # (AUTO) 0.8 K/uL (0.0-1.0)
--- NOTE | 2020-02-18 21:10 | NUR ---
Accucheck 231. Pt stable, no complaints. 1L of NS currently running
[2020-02-18] MEDS ORDERED: POTASSIUM CHLORIDE 20 MEQ TAB.PRT.SR PO ONE (21:15)
--- NOTE | 2020-02-18 21:47 | NUR ---
Patient given written and verbal discharge instructions and verbalizes understanding. ER MD discussed with patient the results and treatment provided. Patient in stable condition. ID arm band removed. IV catheter removed intact and dressing applied, no active bleeding. Rx of Humalog, Metaformin, Lantus given. Patient educated on pain management and to follow up with PMD. Opportunity for questions provided and answered. Medication side effect fact sheet provided.
[2020-02-18 21:55] VITALS: BP_SYST 121
== END 2020-02-18 21:47 | disposition home or self-care (01) ==
LOC: SED 18:00
DX: E11.65 Type 2 diabetes mellitus with hyperglycemia (principal); I10 Essential (primary) hypertension; Z76.0 Encounter for issue of repeat prescription; Z88.5 Allergy status to narcotic agent; Z79.4 Long term (current) use of insulin
CPT/HCPCS: 36415; 36600; 71045; 80053; 82009; 82803; 82962; 85025; 93005; 96361; 96374; 96376; 99285; J1815; J7030

== ENCOUNTER 2020-04-08 21:36 | Emergency (ER) | payer OTHER ==
[~2020-04-08] VITALS: Ht 177.8 cm; Wt 90.7 kg
[2020-04-08 21:50] VITALS: BP_SYST 96
[2020-04-08 23:29] LABS: BASOPHILS # (AUTO) 0.1 K/uL (0.0-0.2); BASOPHILS % (AUTO) 0.8 % (0.0-2.0); EOSINOPHILS # (AUTO) 0.1 K/uL (0.0-0.4); EOSINOPHILS % (AUTO) 0.5 % (0.0-4.0); HEMOGLOBIN 15.6 g/dL (14.0-18.0); LYMPHOCYTES # (AUTO) 1.4 K/uL (1.0-5.5); LYMPHOCYTES % (AUTO) 14.7 % (20.5-51.5); MEAN CORPUSCULAR HEMOGLOBIN 33 pg (27-31); MEAN CORPUSCULAR HGB CONC 34 % (32-36); MEAN CORPUSCULAR VOLUME 97 fL (79.0-98.0); MONOCYTES # (AUTO) 0.8 K/uL (0.0-1.0); MONOCYTES % (AUTO) 8.3 % (1.7-9.3); NEUTROPHILS # (AUTO) 7.3 K/uL (1.8-7.7); NEUTROPHILS % (AUTO) 75.7 % (40.0-70.0); PLATELET COUNT (AUTO) 181 K/uL (130-430); RED BLOOD CELL COUNT(AUTO) 4.75 MIL/uL (4.2-6.2); RED CELL DISTRIBUTION WIDTH 13.3 % (9.0-15.0); WHITE BLOOD COUNT (AUTO) 9.7 K/uL (4.8-10.8)
[2020-04-08 23:45] LABS: ANION GAP 8 (5-15); CALCIUM 9.4 mg/dL (8.4-11.0); CHLORIDE 102 mmol/L (98-107); CREATININE 1.13 mg/dL (0.55-1.30); GLUCOSE 260 mg/dL (70-99); POTASSIUM 4.3 mmol/L (3.5-5.1); SODIUM SERUM 135 mmol/L (136-145); UREA NITROGEN, BLOOD 17 mg/dL (8-21)
[2020-04-08 23:51] LABS: ALANINE AMINOTRANSFERASE 24 U/L (12-78); ALBUMIN 3.7 g/dL (3.4-4.8); ASPARTATE AMINOTRANSFERASE 18 U/L (10-37); LIPASE 39 U/L (73-393); TOTAL BILIRUBIN 0.6 mg/dL (0.0-1.0)
[2020-04-09] MEDS ORDERED: IOHEXOL 100 ML IV ONE (00:12)
[2020-04-09] MEDS ORDERED: KETOROLAC TROMETHAMINE 15 MG VIAL IVP ONE (01:30)
[2020-04-09] MEDS ORDERED: MAGNESIUM CITRATE 300 ML ORAL SOLUTION PO ONE (02:00)
[2020-04-09] MEDS ORDERED: BISACODYL 10 MG/SUPPOSITORY RC ONE (02:00)
[2020-04-09] MEDS ORDERED: LACTULOSE 20 GM/30 ML UDC PO ONE (02:00)
[2020-04-09 06:10] VITALS: BP_SYST 127
== END 2020-04-09 06:10 | disposition home or self-care (01) ==
LOC: SED 21:36
DX: K59.00 Constipation, unspecified (principal); E87.1 Hypo-osmolality and hyponatremia; R10.30 Lower abdominal pain, unspecified; I10 Essential (primary) hypertension; E10.8 Type 1 diabetes mellitus with unspecified complications; Z79.4 Long term (current) use of insulin; Z88.5 Allergy status to narcotic agent
CPT/HCPCS: 36415; 74177; 80053; 83690; 81002; 85025; 96374; 99285; J1885; Q9967

== ENCOUNTER 2020-06-28 18:19 | Emergency (ER) | payer OTHER ==
[~2020-06-28] VITALS: Ht 177.8 cm; Wt 90.7 kg
[2020-06-28 18:23] VITALS: BP_SYST 125
--- NOTE | 2020-06-28 18:25 | NUR ---
Patient presented to ER C/O abdominal pain. Patient A&Ox4, afebrile, skin pink & warm, pain 7/10, denies N/V/D. Patient states has HX of DM and has constipation x3 days.
--- NOTE | 2020-06-28 18:25 | NUR ---
Patient to ER bed 4 to gown for evaluation. Side rails up. Report given to HERVE JOHNSON .
--- NOTE | 2020-06-28 18:30 | NUR ---
Zain fonseca in EDM - 06/28/20 at 1854 by SDEDTD Patient presented to ER C/O Patient AOx4, afebrile, skin pink & warm, pain 03/21, denies N/V/D
--- NOTE | 2020-06-28 18:32 | NUR ---
ER Dr. PHAM at bedside examining patient.
--- NOTE | 2020-06-28 18:35 | NUR ---
# 20 gauge angiocath placed to LEFT AC. Use of asceptic technique. Opsite placed over site. Blood return noted. Blood for lab drawn from site. Flushed with 10 cc of normal saline. No evidence of infiltration noted. Patient tolerated well.
[2020-06-28 18:56] LABS: BASOPHILS % (AUTO) 0.2 % (0.0-2.0); EOSINOPHILS # (AUTO) 0.3 K/uL (0.0-0.4); EOSINOPHILS % (AUTO) 3.8 % (0.0-4.0); HEMATOCRIT 43.3 % (36-54); HEMOGLOBIN 14.7 g/dL (14.0-18.0); MEAN CORPUSCULAR HEMOGLOBIN 32 pg (27-31); MEAN CORPUSCULAR HGB CONC 34 % (32-36); MEAN CORPUSCULAR VOLUME 95 fL (79.0-98.0); MONOCYTES % (AUTO) 12.7 % (1.7-9.3); NEUTROPHILS # (AUTO) 3.7 K/uL (1.8-7.7); NEUTROPHILS % (AUTO) 46.3 % (40.0-70.0); PLATELET COUNT (AUTO) 197 K/uL (130-430); RED BLOOD CELL COUNT(AUTO) 4.56 MIL/uL (4.2-6.2); RED CELL DISTRIBUTION WIDTH 12.9 % (9.0-15.0)
--- NOTE | 2020-06-28 19:00 | NUR ---
REPORT GIVEN TO SCOTT JOHNSON.
[2020-06-28 19:05] LABS: ANION GAP 8 (5-15); CALCIUM 9.1 mg/dL (8.4-11.0); CHLORIDE 102 mmol/L (98-107); CREATININE 1.04 mg/dL (0.55-1.30); GLUCOSE 208 mg/dL (70-99); POTASSIUM 4.4 mmol/L (3.5-5.1); SODIUM SERUM 136 mmol/L (136-145); UREA NITROGEN, BLOOD 15 mg/dL (8-21)
[2020-06-28 19:10] LABS: ALANINE AMINOTRANSFERASE 20 U/L (12-78); ALBUMIN 3.5 g/dL (3.4-4.8); ASPARTATE AMINOTRANSFERASE 13 U/L (10-37); TOTAL BILIRUBIN 0.7 mg/dL (0.0-1.0)
[2020-06-28] MEDS ORDERED: VANCOMYCIN HCL 1,000 MG in NS 250 ML IV ONE (19:30)
--- NOTE | 2020-06-28 19:30 | NUR ---
Blood for labwork drawn from ski molder. Patient tolerated well.
[2020-06-28] MEDS ORDERED: VANCOMYCIN HCL 1000 MG/VIAL IV ONE (19:48)
[2020-06-28] MEDS ORDERED: DIPHENHYDRAMINE INJ 50 MG/ML VIAL IVP ONE (21:45)
--- NOTE | 2020-06-28 21:46 | NUR ---
Given Benadyl [address] Hudson order before CT scan with contrast
[2020-06-28] MEDS ORDERED: DEXAMETHASONE SOD PHOSPHATE 4 MG/ML VIAL IVP ONE (22:00)
[2020-06-28] MEDS ORDERED: DIPHENHYDRAMINE INJ 50 MG/ML VIAL ONE (22:03)
--- NOTE | 2020-06-28 22:05 | NUR ---
Patient transported to radiology via wheelchair, accompanied by RT.
--- NOTE | 2020-06-28 22:24 | NUR ---
Patient came back from CT scan with contrast, no skin rash, no SOB, place patient on campus monitor and pulse ox.
[2020-06-28] MEDS ORDERED: KETOROLAC TROMETHAMINE 30 MG VIAL IVP ONE (23:30)
[2020-06-28] MEDS ORDERED: PANTOPRAZOLE SODIUM 40 MG/VIAL (PROTONIX) IVP ONE (23:30)
[2020-06-28] MEDS ORDERED: MAGNESIUM CITRATE 300 ML ORAL SOLUTION PO ONE (23:45)
[2020-06-28] MEDS ORDERED: KETOROLAC TROMETHAMINE 30 MG VIAL ONE (23:51)
[2020-06-28] MEDS ORDERED: PANTOPRAZOLE SODIUM 40 MG/VIAL (PROTONIX) ONE (23:52)
[2020-06-28 23:55] VITALS: BP_SYST 125
--- NOTE | 2020-06-28 23:55 | NUR ---
Patient given written and verbal discharge instructions and verbalizes understanding. ER MD discussed with patient the results and treatment provided. Patient in stable condition. ID arm band removed. IV catheter removed intact and dressing applied, no active bleeding. Rx of Protonix given. Patient educated on pain management and to follow up with PMD. Pain Scale 2/10. Opportunity for questions provided and answered. Medication side effect fact sheet provided.
== END 2020-06-28 23:55 | disposition home or self-care (01) ==
LOC: SED 18:19
DX: R10.11 Right upper quadrant pain (principal)
CPT/HCPCS: 36415; 71045; 71260; 74018; 74177; 80053; 83605; 83880; 84484; 85025; 85379; 85730; 87040; 96365; 96367; 96375; 99285; C9113; J1100; J1200; J1885; J1956; J3370; Q9967

== ENCOUNTER 2020-12-18 15:59 | Observation (INO) | payer OTHER, SELFPAY ==
[~2020-12-18] VITALS: Ht 177.8 cm; Wt 90.3 kg
[2020-12-18 16:00] VITALS: BP_SYST 105
--- NOTE | 2020-12-18 16:00 | NUR ---
[facility] PLACED IN HALLWAY AND TRIAGED. DR ZAMBRANO AT BEDSIDE UPON ARRIVAL. PT UNABLE TO GIVE ANY INFORMATION AT THIS TIME. PT IS ALTERED
--- NOTE | 2020-12-18 16:10 | NUR ---
SPOKE WITH ADRYAN, PERSON TO NOTIFY, INFORMATION RECEIVED FROM ADRYAN. RELAYED INFORMATION TO DR ZAMBRANO. ADRYAN STATES THAT PT WAS ON HIS WAY TO SEE PMD DR MURILLO AT 1400, UNKNOWN IF PT MADE IT TO APPT.
--- NOTE | 2020-12-18 16:15 | NUR ---
SPOKE WITH DR MURILLO AND STATES THAT PT WAS SEEN AT HIS OFFICE TODAY. PT IS NORMALLY A BIT DEMENTED AND OTHERWISE UNREMARKABLE OFFICE VISIT.
[2020-12-18 16:21] LABS: BASOPHILS # (AUTO) 0.1 K/uL (0.0-0.2); BASOPHILS % (AUTO) 1.7 % (0.0-2.0); EOSINOPHILS # (AUTO) 0.1 K/uL (0.0-0.4); EOSINOPHILS % (AUTO) 1.8 % (0.0-4.0); HEMATOCRIT 39.3 % (36-54); HEMOGLOBIN 13.6 g/dL (14.0-18.0); LYMPHOCYTES # (AUTO) 2.1 K/uL (1.0-5.5); LYMPHOCYTES % (AUTO) 29.2 % (20.5-51.5); MEAN CORPUSCULAR HEMOGLOBIN 33 pg (27-31); MEAN CORPUSCULAR HGB CONC 35 % (32-36); MEAN CORPUSCULAR VOLUME 96 fL (79.0-98.0); MONOCYTES # (AUTO) 0.8 K/uL (0.0-1.0); MONOCYTES % (AUTO) 11.1 % (1.7-9.3); NEUTROPHILS # (AUTO) 4.1 K/uL (1.8-7.7); NEUTROPHILS % (AUTO) 56.2 % (40.0-70.0); PLATELET COUNT (AUTO) 186 K/uL (130-430); RED BLOOD CELL COUNT(AUTO) 4.11 MIL/uL (4.2-6.2); WHITE BLOOD COUNT (AUTO) 7.3 K/uL (4.8-10.8)
--- NOTE | 2020-12-18 16:30 | NUR ---
ER at bedside examining patient.
[2020-12-18 16:44] LABS: ANION GAP 5 (5-15); CALCIUM 9.5 mg/dL (8.4-11.0); CHLORIDE 105 mmol/L (98-107); CREATININE 1.25 mg/dL (0.55-1.30); GLUCOSE 95 mg/dL (70-99); POTASSIUM 4.2 mmol/L (3.5-5.1); SODIUM SERUM 141 mmol/L (136-145); UREA NITROGEN, BLOOD 18 mg/dL (8-21)
[2020-12-18 16:52] LABS: ALANINE AMINOTRANSFERASE 28 U/L (12-78); ALBUMIN 3.5 g/dL (3.4-4.8); ASPARTATE AMINOTRANSFERASE 15 U/L (10-37); TOTAL BILIRUBIN 0.7 mg/dL (0.0-1.0)
[2020-12-18 16:55] LABS: ACETAMINOPHEN < 1 ug/mL (1-30); ALCOHOL, BLOOD < 3 mg/dL (<10)
--- NOTE | 2020-12-18 17:16 | NUR ---
BACK FROM CT. TOLERATED WELL
--- NOTE | 2020-12-18 17:42 | NUR ---
UP STEADY TO HIS FEET, ABLE TO USE URINAL
--- NOTE | 2020-12-18 19:04 | NUR ---
NO DISTRESS, NO CHANGE IN MENTATION, CALM, ALERT, CONFUSED, RESP UNLABORED,
[2020-12-18] MEDS ORDERED: ACETAMINOPHEN 325 MG TABLET PO PRN (20:00)
[2020-12-18] MEDS ORDERED: ALBUTEROL SULFATE 0.083% 2.5 MG/3 ML VIAL.NEB INH PRN (20:00)
[2020-12-18 20:24] VITALS: BP_SYST 112
--- NOTE | 2020-12-18 21:24 | NUR ---
Patient will be admitted to care of KANGER. Admitted to TELE unit. Will go to room 130A. Belongings list completed. Complete and up to date summary report printed. SBAR report to be given at bedside with opportunity for questions.
--- NOTE | 2020-12-18 21:45 | NUR ---
ADMISSION NOTE Received patient from ER via gordo, received report from ALEX Garcia. Patient admitted with diagnosis of SYNCOPE. Patient oriented to hospital routine, call light, toileting and safety-patient verbalized understanding.
[2020-12-18 21:50] VITALS: BP_SYST 162
--- NOTE | 2020-12-18 21:50 | NUR ---
CONSULTATION PAGED/CALLED Reason for Consultation: SYNCOPE,HYPOTENSION Person Who was Notified: [id number] Consulting Physician:WILLIS Vacuum Pan Tender Specialty: Ordering Physician: TRISTEN
--- NOTE | 2020-12-18 22:26 | NUR ---
BS checked 161, 2 units Regular insulin administered. Pt ate sandwich. Call light within reach. To monitor.
[2020-12-18 22:30] VITALS: BP_SYST 123
--- NOTE | 2020-12-18 22:30 | NUR ---
Initial RN notes Pt AAOx3, BP initially 162/84 on admission, BP re-checked 123/65 HR 79. Pt denies dizziness or pain. IVF started L. FA 18G, good blood return. Pt states he was admitted at [facility] for 15 days for low BP, will collect MRSA per protocol. CRN made aware. Oriented pt to call light use, within reach, pt verbalzied understanding. Bed low, locked, siderails up x3, alarm on. To monitor.
[2020-12-18] MEDS: NACL 0.9% 1,000 ML IV SCH (22:32)
[2020-12-18] MEDS: INSULIN REGULAR, HUMAN 100 UNITS/ML, 10 ML VIAL (humuLIN R) SUBCUT PRN (22:32)
[2020-12-19 00:36] VITALS: BP_SYST 125
--- NOTE | 2020-12-19 01:00 | NUR ---
Bathroom Pt assisted to bathroom w/ FWW, pt had a BM. Encouraged pt and placed BSC, pt agreeable.
--- NOTE | 2020-12-19 01:15 | NUR ---
MRSA nares collected and sent to lab.
--- NOTE | 2020-12-19 02:40 | NUR ---
IV Restart Pt c/o IV site hurting L.FA, restarted #22 gauge L. wrist. Use of aseptic technique. Opsite placed over site. Blood return noted. Flushed with 5cc of normal saline. No evidence of infiltration noted. Dc'd old catheter, catheter tip intact. Patient tolerated well.
[2020-12-19 06:22] LABS: BASOPHILS # (AUTO) 0.1 K/uL (0.0-0.2); BASOPHILS % (AUTO) 1.2 % (0.0-2.0); EOSINOPHILS # (AUTO) 0.2 K/uL (0.0-0.4); EOSINOPHILS % (AUTO) 2.4 % (0.0-4.0); HEMATOCRIT 38.6 % (36-54); HEMOGLOBIN 12.8 g/dL (14.0-18.0); LYMPHOCYTES # (AUTO) 3.3 K/uL (1.0-5.5); LYMPHOCYTES % (AUTO) 38.8 % (20.5-51.5); MEAN CORPUSCULAR HEMOGLOBIN 32 pg (27-31); MEAN CORPUSCULAR HGB CONC 33 % (32-36); MEAN CORPUSCULAR VOLUME 97 fL (79.0-98.0); MONOCYTES # (AUTO) 1.1 K/uL (0.0-1.0); MONOCYTES % (AUTO) 13.1 % (1.7-9.3); NEUTROPHILS # (AUTO) 3.8 K/uL (1.8-7.7); NEUTROPHILS % (AUTO) 44.5 % (40.0-70.0); PLATELET COUNT (AUTO) 185 K/uL (130-430); WHITE BLOOD COUNT (AUTO) 8.4 K/uL (4.8-10.8)
--- NOTE | 2020-12-19 06:35 | NUR ---
Closing notes Pt alert, awake. No c/o dizziness or pain. IVF infusing at ordered rate L. wrist 22G no s/s infiltration. Call light/items within reach. Bed low, locked, siderails up x2, alarm on. To endorse to AM nurse.
[2020-12-19 07:00] LABS: ALANINE AMINOTRANSFERASE 27 U/L (12-78); ANION GAP 8 (5-15); ASPARTATE AMINOTRANSFERASE 19 U/L (10-37); CALCIUM 8.9 mg/dL (8.4-11.0); CHLORIDE 109 mmol/L (98-107); CREATININE 0.87 mg/dL (0.55-1.30); GLUCOSE 121 mg/dL (70-99); POTASSIUM 4.2 mmol/L (3.5-5.1); SODIUM SERUM 144 mmol/L (136-145); TOTAL BILIRUBIN 0.7 mg/dL (0.0-1.0); UREA NITROGEN, BLOOD 17 mg/dL (8-21)
[2020-12-19 07:32] LABS: CHOLESTEROL 114 mg/dL (<200); HDL CHOLESTEROL 51 mg/dL (>45); LDL CHOLESTEROL 59 mg/dL (<100); TRIGLYCERIDES 66 mg/dL (30-150)
--- NOTE | 2020-12-19 07:40 | NUR ---
OPENING NOTES: RECEIVED REPORT FROM VOLUNTEER SPECIALIST NURSE. PATIENT IS ASLEEP LAYING DOWN IN BED. TOLERATED OXYGEN ON ROOM AIR WITH NO DISTRESS NOTED. IV LINE PATENT AND INTACT WITH NO INFILTRATION NOTED. PATIENT IN STABLE CONDITION. SAFETY, FALL, AND ASPIRATION PRECAUTIONS ARE IN PLACE. BED LOCKED IN LOWEST POSITION WITH CALL LIGHT IN REACH. WILL CONTINUE TO MONITOR PATIENT FOR ANY CHANGES.
[2020-12-19 08:00] VITALS: BP_SYST 153
--- NOTE | 2020-12-19 10:33 | NUR ---
SS notes: STAVE CUTTER received a referral from to see patient for "transportation" issues. STAVE CUTTER met with patient at bedside. Pt stated he has a ride with his friend Gómez ([phone]), and if Gómez is unable to do it, his other friend Miguel Angel will come and pick pt up. Jas JOHNSON aware and will phone friend Miguel Angel for time of discharge.
[2020-12-19] MEDS: NACL 0.9% 1,000 ML IV SCH (11:00)
[2020-12-19 12:00] VITALS: BP_SYST 133
[2020-12-19] MEDS: INSULIN REGULAR, HUMAN 100 UNITS/ML, 10 ML VIAL (humuLIN R) SUBCUT PRN (12:22)
--- NOTE | 2020-12-19 13:12 | NUR ---
PAGED PAGED LAUREL FAIRCHILD AT [phone] SPOKE WITH EXCHANGE.
[2020-12-19 15:25] VITALS: BP_SYST 114
[2020-12-19 16:08] VITALS: BP_SYST 133
--- NOTE | 2020-12-19 16:15 | NUR ---
D/C Patient Patient given medication reconciliation form and D/C instructions. Exit Care provided. Patient verbalized understanding. MD discussed with patient the results and treatment provided. Ambulatory with steady gait for discharge to home. Patient in stable condition, ID band removed. IV catheter removed, intact and dressing applied, no active bleeding. Rx of ASPIRIN 81 MG 1 TAB PO/DAY X 30DAYS AND LIPITOR 10MG 1 TAB PO/DAY X 30 DAYS given. Patient educated on pain management. All belongings sent with patient.
--- NOTE | 2020-12-22 08:54 | NUR ---
Disposition: 01
--- NOTE | 2020-12-26 13:11 | NUR ---
Discharge Follow Up Call: WHARF TENDER phoned pt @ [phone] and left a message on 12/23 and attempted to phone on 12/24 and 12/26 but was unable to leave message due to mailbox being full. No further SS call needed at this time.
--- NOTE | 2021-01-10 09:41 | NUR ---
IV ADMINISTRATION END TIME (Observation Patients ONLY): late entry : IV infusion of NS at 100 ml started at and ended at on 12/19 prior to patient's discharge. Addendum: 01/11/21 at 0939 by Sariah Velazquez RN Iv infusion of NS 100ml started on 12/19 at 11:00 was discontinued at 16:00 prion to patients discharge 12/19
== END 2020-12-19 16:15 | disposition home or self-care (01) ==
LOC: SED 15:59 → STU 19:47
PROVIDERS: ADMIT Internal Medicine Hospice and Palliative Medicine; ATTEND Internal Medicine Hospice and Palliative Medicine
DX: R55 Syncope and collapse (principal); Z20.822 Contact with and (suspected) exposure to COVID-19; R53.1 Weakness; I25.10 Atherosclerotic heart disease of native coronary artery without angina pectoris; I10 Essential (primary) hypertension; I44.7 Left bundle-branch block, unspecified; I65.29 Occlusion and stenosis of unspecified carotid artery; E11.9 Type 2 diabetes mellitus without complications; G89.29 Other chronic pain; M54.9 Dorsalgia, unspecified; M54.2 Cervicalgia; Z88.5 Allergy status to narcotic agent; Z79.4 Long term (current) use of insulin; Z95.1 Presence of aortocoronary bypass graft; Z79.899 Other long term (current) drug therapy
CPT/HCPCS: 36415 ×2; 70450; 71045; 76376; 80053 ×2; 80061; 82962 ×2; 83036; 84484 ×2; 85025 ×2; 85610; 85730; 86886; 86900; 86901; 87081; 87426; 93005; 93306; 93880; 94760; 96360; 96361 ×2; 96372 ×2; 99285; G0378 ×2; G0482; J1815; J7030 ×2; G0480; G0481